=== PATIENT | female | born 1965 | race Caucasian/White ===

== ENCOUNTER → 2016-07-18 | Outpatient (CLI) | payer BC | LOC: MC.RAD 09:58 | DX: Z12.31 Encounter for screening mammogram for malignant neoplasm of breast (principal) | CPT/HCPCS: G0202 ==

== ENCOUNTER → 2017-08-24 | Outpatient (CLI) | payer BC | LOC: MC.RAD 11:16 | DX: Z12.31 Encounter for screening mammogram for malignant neoplasm of breast (principal) ==

== ENCOUNTER → 2018-08-26 | Outpatient (CLI) | payer BC | LOC: MC.RAD 14:28 | DX: Z12.31 Encounter for screening mammogram for malignant neoplasm of breast (principal); Z90.12 Acquired absence of left breast and nipple; Z85.3 Personal history of malignant neoplasm of breast ==

== ENCOUNTER → 2019-09-17 | Outpatient (CLI) | payer BC | LOC: MC.RAD 09-11 09:00 | DX: Z12.31 Encounter for screening mammogram for malignant neoplasm of breast (principal) ==

== ENCOUNTER → 2020-09-17 | Outpatient (CLI) | payer BC | LOC: MC.RAD 09:15 | DX: Z12.31 Encounter for screening mammogram for malignant neoplasm of breast (principal); Z90.12 Acquired absence of left breast and nipple ==

== ENCOUNTER → 2021-11-17 | Outpatient (CLI) | payer BC | LOC: MC.RAD 08:22 | DX: Z12.31 Encounter for screening mammogram for malignant neoplasm of breast (principal); N64.89 Other specified disorders of breast ==

== ENCOUNTER → 2021-11-28 | Outpatient (CLI) | payer BC | LOC: MC.RAD 13:54 | DX: N63.11 Unspecified lump in the right breast, upper outer quadrant (principal) ==

== ENCOUNTER → 2022-05-15 | Outpatient (CLI) | payer BC | LOC: MC.RAD 09:56 | DX: N63.10 Unspecified lump in the right breast, unspecified quadrant (principal) ==

== ENCOUNTER → 2023-11-19 | Outpatient (CLI) | payer OTHER | LOC: MC.RAD 09:59 | DX: Z12.31 Encounter for screening mammogram for malignant neoplasm of breast (principal) ==